=== PATIENT | female | born 1955 ===

== ENCOUNTER 2021-03-23 10:13 | Emergency (ER) | payer SELFPAY ==
[~2021-03-23] VITALS: Ht 152.4 cm; Wt 56.7 kg
[2021-03-23 11:25] VITALS: BP 139/86
[2021-03-23 13:01] LABS: Urine Bacteria MANY /hpf (None Seen); Urine Blood 2+ /uL (Negative); Urine Mucus FEW (None Seen); Urine Specific Gravity 1.021 (1.001-1.035); Urine WBC 630 /hpf (0 - 5); Urine WBC Clumps PRESENT /hpf (None Seen)
[2021-03-23] MEDS ORDERED: cefTRIAXone SOD 1,000 MG VL IM ONE (13:15)
[2021-03-23] MEDS ORDERED: ACET-1158 PO (13:38)
[2021-03-23] MEDS ORDERED: SULF800T7 PO (13:38)
== END 2021-03-23 14:13 | disposition home or self-care (01) ==
LOC: ER 10:13
DX: N39.0 Urinary tract infection, site not specified (principal)
CPT/HCPCS: 81001; 96372; 99283; J0696